=== PATIENT | female | born 2005 | race Caucasian/White ===

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

== ENCOUNTER 2024-01-01 10:55 | Emergency (ER) | payer BC ==
[2024-01-01 11:41] LABS: BASOPHILS ABSOLUTE AUTO 0.04 K/uL (0.00-0.20); BASOPHILS PERCENT AUTO 0.4 % (0.0-1.0); EOSINOPHILS ABSOLUTE AUTO 0.11 K/uL (0.00-0.45); EOSINOPHILS PERCENT AUTO 1.1 % (0.0-6.0); HEMATOCRIT 39.5 % (37.0-47.0); HEMOGLOBIN 13.5 g/dL (12.0-16.0); IMMATURE GRAN ABSOLUTE AUTO 0.04 K/uL (0.00-0.05); IMMATURE GRAN PERCENT AUTO 0.4 % (0.0-0.4); LYMPHOCYTES ABSOLUTE AUTO 2.33 K/uL (1.00-4.80); LYMPHOCYTES PERCENT AUTO 22.3 % (24.0-44.0); MEAN CORPUSCULAR HEMOGLOBIN 28.9 pg (28.0-32.0); MEAN CORPUSCULAR HGB CONC 34.2 g/dL (32.0-36.0); MEAN CORPUSCULAR VOLUME 84.6 fL (83.0-99.0); MEAN PLATELET VOLUME 9.5 fL (9.4-12.3); MONOCYTES ABSOLUTE AUTO 0.52 K/uL (0.00-0.80); NEUTROPHILS PERCENT AUTO 70.8 % (41.0-71.0); PLATELET COUNT,PLT 273 K/uL (150-400); RED BLOOD CELL COUNT 4.67 M/uL (4.10-5.30); WHITE BLOOD CELL COUNT,WBC 10.44 K/uL (3.9-11.3)
[2024-01-01 11:57] LABS: APPEARANCE,URINE SLT CLOUDY; GLUCOSE,URINE NEGATIVE (NEGATIVE); KETONES,URINE >=80 mg/dL (NEGATIVE); LEUKOCYTE ESTERASE,URINE TRACE (NEGATIVE); NITRITE,URINE POSITIVE (NEGATIVE); OCCULT BLOOD,URINE NEGATIVE (NEGATIVE); PH,URINE 6.5 (5.0-8.0); PROTEIN,URINE NEGATIVE (NEGATIVE)
[2024-01-01 11:58] LABS: BILIRUBIN,URINE SMALL (NEGATIVE); COLOR,URINE DARK YELLOW
[2024-01-01] MEDS: Ondansetron 4 MG Tab.DIS PO ONE (12:06)
[2024-01-01 12:09] LABS: BACTERIA,URINE 4+ (NEGATIVE); EPITHELIAL CELLS,URINE MANY (NONE-FEW); MUCUS,URINE MANY (NONE-MOD); RBC,URINE 0-1 (0-2/HPF)
[2024-01-01 12:35] LABS: A/G RATIO 0.9 (0.9-1.6); ALBUMIN 3.4 g/dL (3.4-5.0); BILIRUBIN TOTAL 0.6 mg/dL (0.2-1.0); CARBON DIOXIDE,CO2 22.7 mmol/L (21.0-32.0); CREATININE 0.7 mg/dL (0.6-1.0); EST CRCL DRUG DOSING (CG) 110.7 mL/min; POTASSIUM,K 3.8 mmol/L (3.5-5.1); PROTEIN TOTAL,TP 7.3 g/dL (6.4-8.2)
== END 2024-01-01 14:20 | disposition home or self-care (01) ==
LOC: MW.ED 10:55
DX: O21.9 Vomiting of pregnancy, unspecified (principal); Z3A.08 8 weeks gestation of pregnancy; Z79.899 Other long term (current) drug therapy; Z88.2 Allergy status to sulfonamides; Z75.8 Other problems related to medical facilities and other health care
CPT/HCPCS: 36415; 76801; 80053; 81001; 84702; 85025; 86900; 86901; 99284; A9270

== ENCOUNTER 2024-08-10 02:11 | Inpatient (IN) | payer BC, MEDICAID ==
[2024-08-10] MEDS ORDERED: Sodium Chloride 0.9% 10 ML Syringe FLUSH PRN (15:39)
[2024-08-10] MEDS ORDERED: Lidocaine 1% 50 ML MDV INJECT PRN (15:39)
[2024-08-10] MEDS ORDERED: Sodium Chloride 0.9% 2.5 ML Syringe FLUSH PRN (15:39)
[2024-08-10] MEDS ORDERED: Tranexamic Acid in NACL,ISO-OS 1,000 MG in Premix Bag 1 BAG IV PRN (15:39)
[2024-08-10] MEDS ORDERED: Misoprostol 200 MCG Tab PO PRN (15:39)
[2024-08-10] MEDS ORDERED: Water For Irrigation,Sterile 1,000 ML Container IRR PRN (15:39)
[2024-08-10] MEDS ORDERED: Methylergonovine 0.2 MG/1 ML Amp IM PRN (15:39)
[2024-08-10] MEDS ORDERED: Carboprost Tromethamine 250 MCG/1 mL Vial IM PRN (15:39)
[2024-08-10] MEDS ORDERED: Butorphanol 2 MG/ML SDV IVPUSH PRN (15:39)
[2024-08-10] MEDS ORDERED: Misoprostol 25 MCG (1/4 of 100 MCG) Tab VAG PRN (15:39)
[2024-08-10] MEDS ORDERED: Terbutaline 1 MG/ML SDV SUBCUT PRN (15:39)
[2024-08-10] MEDS ORDERED: Sodium Chloride 0.9% 20 ML SDV IV PRN (15:39)
[2024-08-10] MEDS ORDERED: Oxytocin/0.9 % Sodium Chloride 30 UNIT/500 ML BAG IV SCH (15:45)
[2024-08-10] MEDS ORDERED: Misoprostol 100 MCG Tab RECTAL PRN (15:46)
[2024-08-10] MEDS ORDERED: Misoprostol 50 MCG (1/2 of 100 MCG) Tab PO PRN (15:46)
[2024-08-10 16:03] LABS: HEMATOCRIT 36.9 % (37.0-47.0); HEMOGLOBIN 12.5 g/dL (12.0-16.0); MEAN CORPUSCULAR HEMOGLOBIN 28.2 pg (28.0-32.0); MEAN CORPUSCULAR HGB CONC 33.9 g/dL (32.0-36.0); MEAN CORPUSCULAR VOLUME 83.3 fL (83.0-99.0); MEAN PLATELET VOLUME 10.5 fL (9.4-12.3); PLATELET COUNT,PLT 203 K/uL (150-400); RED BLOOD CELL COUNT 4.43 M/uL (4.10-5.30); WHITE BLOOD CELL COUNT,WBC 12.72 K/uL (3.9-11.3)
[2024-08-10] MEDS: Oxytocin/0.9 % Sodium Chloride 30 UNIT/500 ML BAG IV SCH (16:44)
[2024-08-10] MEDS: Lactated Ringers 1,000 ML IV SCH (16:44)
[2024-08-10] MEDS ORDERED: Phenylephrine HCl In 0.9% NaCl 1 MG/10 ML Syringe IVPUSH PRN (18:48)
[2024-08-10] MEDS ORDERED: ePHEDrine 50 MG/ML SDV IVPUSH PRN (18:48)
[2024-08-10] MEDS ORDERED: dexmedeTOMIDine HCl 200 MCG/2 ML SDV EPIDUR SCH (19:00)
[2024-08-10] MEDS: Ropivacaine HCl/PF 400 MG in Premix Bag 1 BAG EPIDUR SCH (21:10)
[2024-08-10] MEDS: Ondansetron 4 MG/2 ML SDV IVPUSH PRN (23:34)
[2024-08-11] MEDS ORDERED: Lanolin 100% Cream 7 GM Tube TOP PRN (01:20)
[2024-08-11] MEDS ORDERED: Simethicone 80 MG Tab.Chew PO PRN (01:20)
[2024-08-11] MEDS ORDERED: Witch Hazel Medicated Pads 40/Jar TOP PRN (01:20)
[2024-08-11] MEDS ORDERED: diphenhydrAMINE 50 MG Cap PO PRN (01:20)
[2024-08-11] MEDS ORDERED: Benzocaine/Menthol 20%-0.5% Spray 78 GM Cannister TOP PRN (01:20)
[2024-08-11] MEDS ORDERED: Docusate Sodium 100 MG Cap PO PRN (01:20)
[2024-08-11 02:59] LABS: PH,UMBILICAL ARTERIAL 7.279 (7.18-7.38)
[2024-08-11 03:00] LABS: PH,UMBILICAL VENOUS 7.329 (7.25-7.45)
[2024-08-11] MEDS: Ibuprofen 800 MG Tab PO PRN (16:48)
[2024-08-12 02:48] LABS: HEMATOCRIT 34.7 % (37.0-47.0); HEMOGLOBIN 11.7 g/dL (12.0-16.0); MEAN CORPUSCULAR HEMOGLOBIN 28.5 pg (28.0-32.0); MEAN CORPUSCULAR HGB CONC 33.7 g/dL (32.0-36.0); MEAN CORPUSCULAR VOLUME 84.4 fL (83.0-99.0); MEAN PLATELET VOLUME 10.5 fL (9.4-12.3); PLATELET COUNT,PLT 189 K/uL (150-400); RED BLOOD CELL COUNT 4.11 M/uL (4.10-5.30)
[2024-08-12] MEDS: Acetaminophen 500 MG Tab PO PRN (05:54)
== END 2024-08-12 14:22 | disposition home or self-care (01) | DRG 560 ==
LOC: MW.OB 02:11 → OBSVTOIN 08-11 02:11 → MW.OB 08-11 05:24
PROVIDERS: ADMIT Obstetrics & Gynecology; ATTEND Obstetrics & Gynecology
PROC: 10E0XZZ Delivery of Products of Conception, External Approach (ICD-10-PCS; principal; 2024-08-11)
PROC: 3E033VJ Introduction of Other Hormone into Peripheral Vein, Percutaneous Approach (ICD-10-PCS; 2024-08-11)
PROC: 3E0P7VZ Introduction of Hormone into Female Reproductive, Via Natural or Artificial Opening (ICD-10-PCS; 2024-08-11)
PROC: 0KQM0ZZ Repair Perineum Muscle, Open Approach (ICD-10-PCS; 2024-08-11)
PROC: 3E0R3BZ Introduction of Anesthetic Agent into Spinal Canal, Percutaneous Approach (ICD-10-PCS; 2024-08-11)
PROC: 00HU33Z Insertion of Infusion Device into Spinal Canal, Percutaneous Approach (ICD-10-PCS; 2024-08-11)
PROC: 10H07YZ Insertion of Other Device into Products of Conception, Via Natural or Artificial Opening (ICD-10-PCS; 2024-08-11)
PROC: 10907ZC Drainage of Amniotic Fluid, Therapeutic from Products of Conception, Via Natural or Artificial Opening (ICD-10-PCS; 2024-08-11)
DX: O99.214 Obesity complicating childbirth (principal); Z37.0 Single live birth; D62 Acute posthemorrhagic anemia; O70.1 Second degree perineal laceration during delivery; O90.81 Anemia of the puerperium; O76 Abnormality in fetal heart rate and rhythm complicating labor and delivery; Z3A.39 39 weeks gestation of pregnancy
CPT/HCPCS: 01967; 36415; 51702; 59025; 59409; 59414; 82803; 85027; 86592; 86850; 86900; 86901; A9270-GY; J2405; J2590; J2795; J7120

== ENCOUNTER 2024-09-21 12:21 | Emergency (ER) | payer BC, MEDICAID | END 2024-09-21 13:19 | disposition home or self-care (01) | LOC: MW.ED 12:21 | DX: N76.4 Abscess of vulva (principal); N76.2 Acute vulvitis; Z88.2 Allergy status to sulfonamides; Z79.899 Other long term (current) drug therapy; Z75.8 Other problems related to medical facilities and other health care | CPT/HCPCS: 99282 ==